=== PATIENT | female | born 1985 | race African-American/Black ===

== ENCOUNTER 2020-12-03 05:06 | Inpatient (IN) ==
[2020-12-03] MEDS ORDERED: CITRIC ACID/SODIUM CITRATE 30 ML UDCUP PO ONE (05:31)
[2020-12-03] MEDS ORDERED: LACTATED RINGERS 1,000 ML IV ONE (05:32)
[2020-12-03] MEDS ORDERED: FAMOTIDINE 20 MG/2 ML VIAL IV ONE (06:00)
[2020-12-03] MEDS ORDERED: LACTATED RINGERS 1,000 ML IV SCH (06:00)
[2020-12-03 06:24] LABS: Basophils % 0.1 % (0.0-0.8); Eosinophils # 0.1 10*3/uL (0.0-0.87); Eosinophils % 1.3 % (0.00-10.9); Hematocrit 32.7 VOL% (35.7-47.0); Hemoglobin 11.2 GM/DL (12.0-16.0); Immature Granulocytes % 0.7 %; Immature Granulocytes Absolute 0.06 #; Lymphocytes # 1.2 10*3/uL (1.4-4.0); Lymphocytes % 13.1 % (21.3-54.2); Mean Corpuscular HGB Conc 34.3 GM/DL (32-36); Mean Corpuscular Volume 78.4 FL (87-102); Mean Platelet Volume 9.7 FL (9.6-12.0); Monocytes % 8.1 % (1.7-12.7); Neutrophils % 76.7 % (38.7-73.9); Platelet Count 259 T/CUMM (130-400); Red Blood Count 4.17 MC/CUMM (3.8-5.5); Red Cell Distribution Width 13.3 % (9.3-17.3); White Blood Count 8.9 T/CUMM (4-12)
[2020-12-03] MEDS ORDERED: BUPIVACAINE SPINAL 0.75% 2 ML AMP SPINAL ONE (06:34)
[2020-12-03 06:36] LABS: INR 0.9; PT Patient Result 10.7 SECS (10.5-12.0); Partial Thromboplastin Time 23.1 SECS (23.8-32.1)
[2020-12-03 07:01] LABS: Bilirubin,Direct 0.14 MG/DL (0.0-0.20); Uric Acid 5.4 MG/DL (2.6-6.0)
[2020-12-03] MEDS ORDERED: miSOPROStoL 200 MCG TABLET ONE (07:11)
[2020-12-03] MEDS ORDERED: TRANEXAMIC ACID 1,000 MG/10 ML VIAL ONE (07:11)
[2020-12-03] MEDS ORDERED: CARBOPROST TROMETHAMINE 250 MCG/ML AMP IM ONE (07:12)
[2020-12-03] MEDS ORDERED: METHYLERGONOVINE 0.2 MG/1 ML AMP ONE (07:12)
[2020-12-03 07:47] LABS: Bilirubin,Total 1.9 MG/DL (0.20-1.00); Calcium 9.2 MG/DL (8.5-10.1); Osmolality,Calculated 271.7 MOS/KG (273-304); Potassium 3.5 MMOL/L (3.5-5.1); Total Protein 7.2 G/DL (6.4-8.2)
[2020-12-03] MEDS ORDERED: MIDAZOLAM 2 MG/2 ML VIAL ONE (08:17)
[2020-12-03 08:18] LABS: Cord Arterial Blood HCO3 29.5 MMOL/L
[2020-12-03] MEDS ORDERED: propofoL 200 MG/20 ML VIAL IV ONE (08:18)
[2020-12-03 08:19] LABS: Cord Venous Blood HCO3 26.1 MMOL/L; Cord Venous Blood PCO2 46.4 MMHG; Cord Venous Blood PO2 34.4
[2020-12-03] MEDS ORDERED: DEXAMETHASONE 4 MG/1 ML VIAL ONE (08:19)
[2020-12-03] MEDS ORDERED: ONDANSETRON 4 MG/2 ML VIAL ONE (08:19)
[2020-12-03] MEDS ORDERED: ACETAMINOPHEN INJ 1,000 MG/100 ML VIAL IV ONE (08:19)
[2020-12-03] MEDS ORDERED: KETOROLAC 30 MG/1 ML VIAL ONE (08:20)
[2020-12-03 08:21] LABS: Bacteria,Urine Occasional /HPF (Few); Bilirubin,Urine Negative (Negative); Blood, Urine Negative (Negative); Glucose,Urine (UA) Negative (Negative); Ketones,Urine Negative (Negative); Mucus,Urine Occasional /LPF (Occasional); Nitrite,Urine Negative (Negative); Protein,Urine Negative; RBC,Urine 1 /HPF (0-4); Squamous Epithelial Cell,Urine Occasional /HPF (0-10); Urine Appearance CLEAR (Clear); Urine Color Straw (Yellow); Urine Specific Gravity 1.009 (1.001-1.035); Urine Urobilinogen < 2.0 EU/DL (0.2-1.0)
[2020-12-03] MEDS ORDERED: LABETALOL 20 MG/4 ML SYRINGE IV ONE (08:34)
[2020-12-03 08:49] LABS: Protein/Creatinine Ratio,Urine 0.5 RATIO
[2020-12-03] MEDS: LABETALOL 200 MG TABLET PO SCH ×2 (10:42→20:44)
[2020-12-03] MEDS ORDERED: DIPH/TET/ACEL PERT BOOSTER VACCINE 0.5 ML VIAL IM ONE (11:02)
[2020-12-03] MEDS ORDERED: LANOLIN 50% CREAM 0.3 OZ TUBE TOP PRN (11:02)
[2020-12-03] MEDS ORDERED: ACETAMINOPHEN 325 MG TABLET PO PRN (11:02)
[2020-12-03] MEDS ORDERED: MEASLES/MUMPS/RUBELLA VACCINE 0.5 ML VIAL SUBCUT ONE (11:02)
[2020-12-03] MEDS ORDERED: IBUPROFEN 800 MG TABLET PO PRN (11:02)
[2020-12-03] MEDS ORDERED: HYDROCORTISONE 2.5% RECTAL CREAM 30 GM TUBE TOP PRN (11:02)
[2020-12-03] MEDS ORDERED: WITCH HAZEL PADS 100/JAR TOP PRN (11:02)
[2020-12-03] MEDS ORDERED: OXYTOCIN/LR 20 UNIT/1,000 ML BAG IV ONE (11:02)
[2020-12-03] MEDS ORDERED: oxyCODONE/ACETAMINOPHEN 5-325 MG TABLET PO PRN ×2 (11:02)
[2020-12-03] MEDS ORDERED: BENZOCAINE 20%/MENTHOL 0.5% SPRAY 56 GM CAN TOP PRN (11:02)
[2020-12-03] MEDS ORDERED: BISACODYL 10 MG SUPP RECTAL PRN (11:02)
[2020-12-03] MEDS ORDERED: RHO(D) IMMUNE GLOBULIN 300 MCG SYRINGE IM ONE (11:02)
[2020-12-03] MEDS ORDERED: ONDANSETRON 4 MG/2 ML VIAL IV PRN (11:02)
[2020-12-03] MEDS ORDERED: diphenhydrAMINE CAP 25 MG CAPSULE PO PRN (14:21)
[2020-12-03] MEDS: ACETAMINOPHEN 500 MG TABLET PO SCH ×2 (14:23→20:44)
[2020-12-03] MEDS: KETOROLAC 30 MG/1 ML VIAL IV SCH ×2 (14:24→20:45)
[2020-12-03] MEDS: ceFAZolin 2,000 MG/50 ML DUPLEX IV SCH ×2 (16:37→23:22)
[2020-12-03] MEDS: DOCUSATE SODIUM 100 MG CAPSULE PO SCH (19:29)
[2020-12-03] MEDS: SIMETHICONE CHEW 125 MG TABLET PO PRN (19:29)
[2020-12-04] MEDS: DOCUSATE SODIUM 100 MG CAPSULE PO SCH ×3 (00:07→21:28)
[2020-12-04] MEDS: ACETAMINOPHEN 500 MG TABLET PO SCH (03:38)
[2020-12-04] MEDS: SIMETHICONE CHEW 125 MG TABLET PO PRN (03:48)
[2020-12-04] MEDS: KETOROLAC 30 MG/1 ML VIAL IV SCH (03:49)
[2020-12-04 07:22] LABS: Basophils % 0.2 % (0.0-0.8); Eosinophils # 0.1 10*3/uL (0.0-0.87); Eosinophils % 1.6 % (0.00-10.9); Hematocrit 27.9 VOL% (35.7-47.0); Hemoglobin 9.3 GM/DL (12.0-16.0); Immature Granulocytes % 0.6 %; Immature Granulocytes Absolute 0.05 #; Lymphocytes # 1.6 10*3/uL (1.4-4.0); Lymphocytes % 18.3 % (21.3-54.2); Mean Corpuscular HGB Conc 33.3 GM/DL (32-36); Mean Corpuscular Volume 79.5 FL (87-102); Mean Platelet Volume 9.6 FL (9.6-12.0); Monocytes % 9.1 % (1.7-12.7); Neutrophils % 70.2 % (38.7-73.9); Platelet Count 234 T/CUMM (130-400); Red Blood Count 3.51 MC/CUMM (3.8-5.5); Red Cell Distribution Width 13.4 % (9.3-17.3); White Blood Count 8.8 T/CUMM (4-12)
[2020-12-04] MEDS: LABETALOL 200 MG TABLET PO SCH ×2 (10:35→21:11)
[2020-12-04] MEDS ORDERED: MAGNESIUM HYDROXIDE SUSP 30 ML UDCUP PO PRN (12:30)
[2020-12-05] MEDS: LABETALOL 200 MG TABLET PO SCH (08:14)
[2020-12-05] MEDS: DOCUSATE SODIUM 100 MG CAPSULE PO SCH (08:14)
[2020-12-05 08:51] VITALS: BP 117/54
== END 2020-12-05 12:25 | disposition home or self-care (01) | DRG 784 ==
LOC: N.LD 05:06 → N.OB 10:52
PROVIDERS: ADMIT Specialist; ATTEND Specialist